=== PATIENT | male | born 1990 | race Caucasian/White ===

== ENCOUNTER 2017-03-11 22:29 | Inpatient (IN) | payer OTHER ==
[~2017-03-11] VITALS: Ht 175.3 cm; Wt 74.4 kg
--- NOTE | ~2017-03-11 | DS ---
Unit #: [id number] #: [id number] Patient: [facility] [id number] [facility] [address] [place] [address] [id number] I MR#: [id number] NAME: NEVILLE ROTHMAN ROOM: P177 Age: 26 Sex: M Admission Date: 03/12/2017 : 1990 Discharge Date: 03/14/2017 Attending Physician: Pepe Puckett M.D. Primary Care Physician: Generic Doctor Not In System DISCHARGE SUMMARY IDENTIFICATION DATA Mr. Rothman is a 26-year-old white male who is a resident of [place], [place], and is known to us from previous encounter and was self-referred to the program. DISCHARGE DIAGNOSES PSYCHIATRIC: Opiate dependence, moderate, in acute withdrawal. Opiate-induced mood disorder. MEDICAL: None. STRESSORS: Mild psychosocial stressors. HISTORY OF PRESENT ILLNESS Same as in initial psychiatric evaluation. PAST PSYCHIATRIC HISTORY Same as in initial psychiatric evaluation. PAST MEDICAL HISTORY Same as in initial psychiatric evaluation. HOSPITAL COURSE The patient was admitted to the adult chemical dependency unit at [facility] and was oriented to the hospital environment. Routine p.r.n. medications were initiated, and he was started back on his home medications and opioid detox protocol was initiated. However, he was seen to be showing very poor insight into his situation, and feeling that he is not ready, and wants to leave and wants to sign himself out and that he is not ready to give up drugs and as a matter of fact was very open about stating that the first thing he is going to do when he leaves the hospital is to "shoot up." He stated that it does not matter how long they keep him here because he is not ready to give up the drugs and he is going to do the drugs as soon as he leaves the hospital and then decided he wanted to leave against medical advice. He was denying any suicidal ideations, intent, and plan. Recommendation was made for the patient to continue treatment. He refused to accept recommendation from the treatment team, and as such it was decided that he will be discharged home against medical advice. CONDITION AT DISCHARGE Stable. PROGNOSIS Guarded. Unit #: [id number] #: [id number] Patient: NEVILLE ROTHMAN Dictated by... Haylee Encarnacion/sadaf TD: 04/03/2017 09:49 JOB #: [id number] DISCHARGE SUMMARY Page 1 of 1 X Pepe Puckett MD DISCHARGE SUMMARY
--- NOTE | ~2017-03-11 | PN ---
Unit #: [id number] #: [id number] Patient: NEVILLE ROTHMAN [id number] [facility] [address] [place] [address] [id number] MR#: [id number] NAME: NEVILLE ROTHMAN ROOM: P177 Age: 26 Sex: M Admission Date: 03/12/2017 : 1990 Attending Physician: Pepe Puckett M.D. Admitting Physician: Pepe Puckett M.D. Primary Care Physician: Generic Doctor Not In System [facility] PROGRESS NOTES DATE OF SERVICE 03/14/2017 DISCUSSION Mr. Rothman is a 26-year-old white male with substance abuse and mood disorder who was seen today. Chart was reviewed and case was discussed with staff. He has been showing very poor insight into his situation stating that he does not want to be here, and that he wants to leave, and that he is going to get high the moment he leaves the hospital. When I asked why did he even come to the hospital, he stated because he was homeless and that he is not ready for sobriety and "when I'm not ready I'm not ready." He used to come together along with his brother and stated that his brother got sober and has been sober for 2 years but that he is not ready for that, and "it will click to me in my head when I am ready." As such he has been showing poor prognosis, and despite encouragement did not appear to be motivated towards sobriety, and as a matter of fact was very open as wanting to continue using drugs, and that he is going to get high as soon as he gets out of the hospital. As such we will continue to monitor trends towards treatment, and we will continue to encourage the patient to show better compliance with treatment recommendations. Dictated by... Haylee Encarnacion/sadaf TD: 03/14/2017 12:45 JOB #: [id number] [facility] PROGRESS NOTES Page 1 of 1 X Pepe Puckett MD X PROGRESS NOTE
--- NOTE | ~2017-03-11 | HP ---
Unit #: [id number] #: [id number] Patient: MITCH CISNEROS [id number] [place] [address] [id number] I MR#: [id number] NAME: MITCH CISNEROS ROOM: P177 Age: 26 Sex: M Admission Date: 03/12/2017 : 1990 Attending Physician: Pepe Puckett M.D. Admitting Physician: Pepe Puckett M.D. Primary Care Physician: Generic Doctor Not In System HISTORY AND PHYSICAL HISTORY OF PRESENT ILLNESS Mitch is a 26-year-old male admitted on 03/12/2017 to [facility] for detox from heroin, meth and benzos. PAST MEDICAL HISTORY None. PAST SURGICAL HISTORY None. SOCIAL HISTORY Smokes one pack of cigarettes daily. Reports frequent use of heroin, benzos and meth. He is currently single and living with his mother. He denies any alcohol use. FAMILY HISTORY Noncontributory. REVIEW OF SYSTEMS CONSTITUTIONAL: No fever or chills. HEENT: Denies any sore throat, ear pain or runny nose. CARDIOVASCULAR: Denies chest pain, irregular heart rhythm or palpitations. CHEST: Denies shortness of breath or cough. No hemoptysis. GASTROINTESTINAL: Denies nausea, vomiting, diarrhea or chronic constipation. ENDOCRINE: Denies history of increased thirst or urination. No recent significant weight loss or gain. GENITOURINARY: Denies dysuria, frequency, or hematuria. SKIN: Denies any rashes. HEMATOLOGIC: Denies history of increased bleeding or bruising. MUSCULOSKELETAL: Denies any hot, swollen joints. No generalized muscle pain. NEUROLOGIC: Denies problems with vision or speech. No frequent, severe headaches. No numbness, tingling or weakness in any extremities. Denies loss of bladder or bowel control. CURRENT MEDICATIONS None. ALLERGIES None. Unit #: [id number] #: [id number] Patient: MITCH CISNEROS PHYSICAL EXAMINATION GENERAL: Alert, oriented, in no acute distress. VITAL SIGNS: Blood pressure 121/56, heart rate 83, temperature 98.4. HEIGHT: 5 foot 9 inches. WEIGHT: 164 pounds. SKIN: Warm and dry without rash or lesion. HEENT: Normocephalic. TMs not viewed. Oral and nasal passages clear. Conjunctivae clear. PERRLA. EOMs intact. NECK: Supple without lymphadenopathy or thyromegaly. HEART: Regular rate and rhythm without murmur. LUNGS: Clear. ABDOMEN: Soft, nontender, without masses or hepatosplenomegaly. : Not done. EXTREMITIES: No evidence of cyanosis, clubbing or edema. Moves all without focal deficit. NEUROLOGICAL: Grossly within normal limits. Cranial Nerves: II: Visual cameron are intact. III, IV AND : Extraocular movements are intact. Pupils are equal, round and reactive to light. V: Facial sensation is grossly normal. VII: Facial movements and expression are normal. VIII: Auditory acuity grossly intact. IX, X: Uvula is midline. Phonation is normal. XI: Patient shrugs shoulders and turns head normally. XII: Tongue protrudes in the midline. Sensory and Motor Function: Sensory and motor sensation is grossly normal. Motor: moves all extremities well. Coordination: Gait is normal. Deep Tendon Reflexes: Intact. IMPRESSION Psychiatric admission. RECOMMENDATIONS Psychiatric, per psychiatrist. MEDICAL: I see no contraindications to participating in facility's activities. MEDICAL PROGNOSIS Good. MEDICAL CONDITION Stable. Dictated by... Estefany Navarrete/jayro TD: 03/12/2017 20:54 JOB #: [id number] Unit #: [id number] #: [id number] Patient: MITCH CISNEROS HISTORY AND PHYSICAL Page 1 of 1 X ADEBAYO OZUNA APRN X HISTORY AND PHYSICAL
--- NOTE | ~2017-03-11 | PA ---
Unit #: [id number] #: [id number] Patient: [facility]LE ROTHMAN [id number] [facility] [address] [place] [address] [id number] MR#: [id number] NAME: NEVILLE ROTHMAN ROOM: P177 Age: 26 Sex: M Admission Date: 03/12/2017 : 1990 Date of Assessment: Attending Physician: Pepe Puckett M.D. Admitting Physician: Pepe Puckett M.D. Primary Care Physician: Generic Doctor Not In System PSYCHIATRIC ASSESSMENT DATE OF SERVICE 03/12/2017. IDENTIFYING DATA Mr. Rothman is a 26-year-old single white male, who is a resident of [place], [place], and is known to us from previous encounter, and was self-referred to the hospital on a voluntary basis. CHIEF COMPLAINT "I continue to use heroin, benzo, and methamphetamine." HISTORY OF PRESENT ILLNESS Mr. Rothman is a 26-year-old white male with history of substance abuse and mood disorder, who was self-referred to the hospital reporting continued use of heroin, benzos, and methamphetamine and his last use was last night, and he was at the bus stop in [place] of [employer] and reports that he used 1 to 2 g of heroin and has been using at that rate on a daily basis and has been using 6 to 8 mg of benzodiazepines a day and has been using 0.5 g of methamphetamine a day and does report increasing depression, anxiety, irritability, restlessness, significant consequences because of his addiction, and feelings of hopelessness and helplessness, but denies any suicidal ideations, intent, or plan. SUBSTANCE ABUSE HISTORY The patient reports extensive history of substance abuse and dependence including cocaine, cannabis, opioids, methamphetamine, and benzodiazepines, and currently, heroin, meth, and benzodiazepines have been his drug of choice. PAST PSYCHIATRIC HISTORY The patient [facility], and review of the medical records indicate currently he is not active in any treatment program, is not seeing a psychiatrist, and is not taking any psychotropic medications. PAST MEDICAL HISTORY Hepatitis C. ALLERGIES No known medication allergies. CURRENT MEDICATIONS None. Unit #: [id number] #: [id number] Patient: NEVILLE ROTHMAN PERSONAL AND SOCIAL HISTORY A 26-year-old white male, who reports that he is single, unemployed, and homeless and has poor social support system. MENTAL STATUS EXAMINATION Young white male, who was casually dressed with fair personal hygiene, appears to be in no acute distress or discomfort. He was awake and alert on interaction with intact orientation to time, place, and person. His mood was anxious and depressed with a congruent affect. His speech was slow and restricted in content. His thought processes were disorganized with some looseness of associations and flight of ideas. He denies any suicidal or homicidal ideations and also denies any auditory or visual hallucinations. His insight and judgment remain significantly impaired. TREATMENT PLAN 1. The patient has presented with a history of mood disorder and substance abuse and has been decompensating and will need inpatient hospitalization for safety and stabilization. We will start him back on his home medications. We will adjust the medications and monitor response. 2. Supportive therapy was provided to the patient. 3. Safe, structured, and nourishing environment will be provided. ESTIMATED LENGTH OF STAY 5 to 7 days. ABILITY TO HELP SELF Limited. WILLINGNESS TO HELP SELF The patient appears to be willing to help self. STRENGTHS 1. Communicative. 2. Cooperative. PROBLEMS 1. Chronic dysphoric symptoms. 2. Poor social support system. DISCHARGE CRITERIA This will be contingent upon the patient's ability to show resolution of his depression and anxiety and his ability to stay safe to himself, particularly after discharge from the hospital. Dictated by... Haylee Encarnacion/kiah TD: 03/12/2017 13:08 JOB #: [id number] Unit #: [id number] #: [id number] Patient: NEVILLE ROTHMAN STEFFI PSYCHIATRIC ASSESSMENT Page 1 of 1 X Pepe Puckett MD X PSYCHIATRIC ASSESSMENT
--- NOTE | ~2017-03-11 | PN ---
Unit #: [id number] #: [id number] Patient: NEVILLE ROTHMAN [id number] [facility] [address] [place] [address] [id number] I MR#: [id number] NAME: NEVILLE ROTHMAN ROOM: P177 Age: 26 Sex: M Admission Date: 03/12/2017 : 1990 Attending Physician: Pepe Puckett M.D. Admitting Physician: Pepe Puckett M.D. Primary Care Physician: Generic Doctor Not In System [facility] PROGRESS NOTES DATE OF SERVICE: 03/13/2017 SUBJECTIVE Mr. Rothman is a 26-year-old white male seen today and chart was reviewed, and case was discussed with the staff. He has been doing fairly well with no agitation and he has been taking the medication and tolerating them fairly well with no reported side effects. MENTAL STATUS EXAMINATION Young white male who was casually dressed with fair personal hygiene, appears to be in slight distress or discomfort. He was awake and alert with impaired attention and concentration. Mood was anxious with a congruent affect. He denies any suicidal or homicidal ideations. His insight and judgment remain slightly impaired. TREATMENT PLAN 1. We will continue his current treatment protocol. We will monitor his response to the medications and make further adjustments as needed. 2. We will continue to follow up. Dictated by... Haylee Encarnacion/kiah TD: 03/13/2017 08:19 JOB #: [id number] [facility] PROGRESS NOTES Page 1 of 1 X Pepe Puckett MD PROGRESS NOTE
[2017-03-13 09:49] LABS: BASOPHIL% 0.5 % (0-2.5); EOSINOPHIL% 0.6 % (0.0-7.0); HEMATOCRIT 41.2 % (38.0-50.0); LYMPHOCYTE% 24.2 % (17.0-45.0); MEAN CORPUSCULAR HEMOGLOBIN 28.8 PG (28-34); MEAN CORPUSCULAR HGB CONC 33.9 g/dL (30-36); MEAN PLATELET VOLUME 9.5 FL (6.5-11.5); MONOCYTE# 0.4 X10e3 (0-1.0); MONOCYTE% 4.7 % (3.0-12.0); NEUTROPHIL# 5.7 X10e3 (1.5-7.1); PLATELET COUNT 222 X10e3 (140-420); RED BLOOD COUNT 4.85 X10e (3.90-5.60); RED CELL DISTRIBUTION WIDTH 14.4 % (11.0-15.5); WHITE BLOOD COUNT 8.1 X10e3 (4.0-10.5)
[2017-03-13 10:00] LABS: ALBUMIN SERUM 3.9 g/dL (3.5-5.0); BILIRUBIN,TOTAL 0.6 mg/dL (0.2-2.0); BUN/CREATININE RATIO 17.14; CALCIUM SERUM 9.2 mg/dL (8.4-10.2); CREATININE SERUM 0.7 mg/dL (0.6-1.4); GLOM FILT RATE Estimated 130.3 mL/min (>60); POTASSIUM 4.5 mmol/L (3.5-5.1); PROTEIN TOTAL SERUM 6.8 g/dL (6.0-8.3)
[2017-03-13 10:01] LABS: DIFF IND NO
[2017-03-13 10:42] LABS: URINE APPEARANCE CLOUDY; URINE BILIRUBIN NEG (NEG); URINE BLOOD NEG (NEG); URINE COLOR AMBER; URINE GLUCOSE NORM (NORM); URINE KETONE NEG (NEG); URINE LEUKOCYTE ESTERASE NEG (NEG); URINE NITRATE NEG (NEG); URINE PROTEIN NEG (NEG); URINE UROBILINOGEN NORM (NORM)
[2017-03-13 10:49] LABS: AMPHETAMINE POS (NEG); BARBITURATES NEG (NEG); BENZODIAZEPINES NEG (NEG); COCAINE NEG (NEG); MARIJUANA POS (NEG); OPIATES POS (NEG); TRICYCLIC ANTIDEPRESSANTS NEG (NEG); U METHADONE NEG (NEG)
== END 2017-03-14 13:37 | disposition left against medical advice (07) | DRG 894 ==
LOC: P1E 03-12 02:10
PROVIDERS: Psychiatry & Neurology Psychiatry
PROC: HZ2ZZZZ Detoxification Services for Substance Abuse Treatment (ICD-10-PCS; principal; 2017-03-12)
DX: F11.10 Opioid abuse, uncomplicated (principal); F13.10 Sedative, hypnotic or anxiolytic abuse, uncomplicated; F15.10 Other stimulant abuse, uncomplicated
CPT/HCPCS: 80053; 80307; 81003; 85025; 86592